=== PATIENT | female | born 1965 | race Caucasian/White ===

== ENCOUNTER 2019-04-14 12:36 | Observation (INO) ==
[2019-04-14] MEDS ORDERED: *HR* Promethazine 25 MG/ML VIAL IVP PRN (16:23)
[2019-04-14] MEDS ORDERED: Ondansetron ODT 4 MG TAB.RAPDIS SL PRN (16:23)
[2019-04-14] MEDS ORDERED: Ondansetron 4 MG/2 ML VIAL IVP PRN (16:23)
[2019-04-14 17:30] LABS: Prothrombin Time 11.4 Seconds (9.4-12.1)
[2019-04-14 17:34] LABS: Basophils % 0.4 %; Eosinophils # 0.1 K/mcL (0.0-0.6); Eosinophils % 2.7 %; Hematocrit 36.8 % (35.3-44.9); Hemoglobin 12.4 g/dL (11.5-15.4); Immature Granulocytes % 0.2 % (0-4); Lymphocytes # 0.7 K/mcL (0.6-4.6); Mean Corpuscular HGB Conc 33.7 g/dL (31.6-35.5); Mean Corpuscular Hemoglobin 31.1 pg (28.0-33.3); Mean Corpuscular Volume 92.2 fL (83.0-100.0); Mean Platelet Volume 10.5 fL (9.4-12.4); Monocytes # 0.4 K/mcL (0.0-1.3); Monocytes % 8.2 %; Neutrophils # 3.6 K/mcL (1.6-8.9); Platelet Count 192 K/mcL (140-400); Red Blood Count 3.99 M/mcL (3.82-4.97); Red Cell Distribution Width 15.5 % (11.5-14.5); Segmented Neutrophils % 74.5 %; White Blood Count 4.9 K/mcL (4.3-11.1)
[2019-04-14] MEDS: Ringers Solution, Lactated 1,000 ML IVC SCH (17:46)
[2019-04-14 17:51] LABS: Alanine Aminotransferase 29 Units/L (7-52); Albumin 3.2 g/dL (3.5-5.7); Albumin/Globulin Ratio 1.2 (1.1-2.2); Alkaline Phosphatase 109 Units/L (34-104); Aspartate Amino Transferase 25 Units/L (13-39); BUN/Creatinine Ratio 22 (6-26); Bilirubin,Total 0.5 mg/dL (0.3-1.0); Blood Urea Nitrogen 18 mg/dL (6-20); Calcium 7.9 mg/dL (8.6-10.3); Carbon Dioxide 26 mEq/L (23-29); Chloride 108 mEq/L (98-107); Globulin 2.6 g/dL (2.4-3.5); Glucose 233 mg/dL (70-105); Osmolality,Calculated 299 (280-300); Potassium 3.9 mEq/L (3.5-5.1); Sodium 140 mEq/L (136-145); Total Protein 5.8 g/dL (6.4-8.9); eGFR For African Americans > 60 (> 60); eGFR For Non-African Americans > 60 (> 60)
[2019-04-14 18:38] LABS: Lipase 123 Units/L (11-82)
[2019-04-14] MEDS: Linezolid 600 MG TABLET PO SCH (20:40)
[2019-04-14] MEDS: Patient Taking Own Medication 1 EACH PO SCH (20:40)
[2019-04-14] MEDS ORDERED: amLODIPine 5 MG TABLET PO SCH (21:00)
[2019-04-15] MEDS: Ringers Solution, Lactated 1,000 ML IVC SCH (05:29)
[2019-04-15] MEDS ORDERED: D5% in Water 1,000 ML IVC PRN ×2 (05:35→10:03)
[2019-04-15] MEDS ORDERED: Dextrose Gel 15 GM/37.5 ML TUBE PO PRN ×2 (05:35)
[2019-04-15] MEDS ORDERED: *HR* Dextrose 50 % in Water (Syg) 50 ML SYRINGE IVP PRN (05:35)
[2019-04-15 05:40] LABS: Hematocrit 36.3 % (35.3-44.9); Hemoglobin 11.6 g/dL (11.5-15.4); Mean Corpuscular Hemoglobin 30.2 pg (28.0-33.3); Mean Corpuscular Volume 94.5 fL (83.0-100.0); Mean Platelet Volume 9.9 fL (9.4-12.4); Platelet Count 164 K/mcL (140-400); Red Blood Count 3.84 M/mcL (3.82-4.97); Red Cell Distribution Width 15.3 % (11.5-14.5); White Blood Count 3.5 K/mcL (4.3-11.1)
[2019-04-15 05:54] LABS: BUN/Creatinine Ratio 14 (6-26); Blood Urea Nitrogen 10 mg/dL (6-20); Calcium 8.2 mg/dL (8.6-10.3); Carbon Dioxide 27 mEq/L (23-29); Chloride 109 mEq/L (98-107); Glucose 88 mg/dL (70-105); Osmolality,Calculated 296 (280-300); Phosphorous 3.2 mg/dL (2.7-4.5); Potassium 3.8 mEq/L (3.5-5.1); Sodium 144 mEq/L (136-145); eGFR For African Americans > 60 (> 60); eGFR For Non-African Americans > 60 (> 60)
[2019-04-15] MEDS: Patient Taking Own Medication 1 EACH PO SCH (09:07)
[2019-04-15] MEDS: Linezolid 600 MG TABLET PO SCH (09:19)
[2019-04-15 11:04] VITALS: BP 128/84
[2019-04-15] MEDS ORDERED: Insulin LISPRO 300 UNITS/3 ML VIAL SQ SCH ×2 (11:30→21:00)
[2019-04-15] MEDS ORDERED: Pregabalin 50 MG CAPSULE PO SCH (15:00)
[2019-04-15] MEDS ORDERED: *HR* Heparin 5,000 UNIT/ML VIAL SQ SCH (18:00)
[2019-04-15] MEDS ORDERED: Lisinopril 20 MG TABLET PO SCH (21:00)
== END 2019-04-15 16:06 | disposition home or self-care (01) ==
LOC: 3BNU
PROVIDERS: ADMIT Internal Medicine; ATTEND Internal Medicine